=== PATIENT | female | born 1990 | race African-American/Black ===

== ENCOUNTER 2017-05-07 14:22 | Emergency (ER) | payer OTHER ==
[~2017-05-07] VITALS: Ht 154.9 cm; Wt 50.4 kg
[~2017-05-07 14:22] MED LIST: AMITRIPTYLINE H25 MG PO; ATARAX,VISTARIL25 MG PO; CITALOPRAM HBR20 MG PO; DEPO-PROVER150 MG/ML IM; ENDOCET 5-3251 EACH PO; IBUPROFEN800 MG PO; NOHOMEMEDS; PRENATAL TABLE1 EAC3 PO
[2017-05-07 14:52] LABS: HEMATOCRIT 40.6 % (36.0-46.0); HEMOGLOBIN 13.5 G/DL (11.9-15.5); MCH 28.8 PG (29.0-34.0); MCHC 33.3 G/DL (30.0-36.0); MCV 86.6 FL (83-99); PLATELET COUNT 222 K/uL (156-360); RBC DIS.WIDTH-CV 12.9 % (11.8-14.6); RBC DIS.WIDTH-SD 40.4 % (39-53); RED BLOOD COUNT 4.69 M/uL (3.80-5.20); WHITE BLOOD COUNT 8.7 K/uL (4.1-10.2)
[2017-05-07 15:03] LABS: ALBUMIN 4.6 g/dL (3.2-4.8); CHLORIDE 109 mEq/L (99-109); POTASSIUM 3.7 mEq/L (3.7-5.4); SODIUM 142 mEq/L (136-147)
[2017-05-07 15:06] LABS: GLUCOSE 105 mg/dL (70-99); TOTAL PROTEIN 8.5 g/dL (6.4-8.3)
[2017-05-07 15:06] LABS: APPEARANCE CLOUDY ((CLEAR)); BILIRUBIN NEGATIVE; BLOOD MODERATE; COLOR YELLOW ((YELLOW)); GLUCOSE (STRIP) NEGATIVE; KETONES 80; LEUKOCYTES LARGE; NITRITE NEGATIVE; PROTEIN (STRIP) NEGATIVE; SPECIFIC GRAVITY 1.016 (1.000-1.030); UROBILINOGEN 0.2 MG/DL (0.2-1.0)
[2017-05-07 15:08] LABS: TOTAL BILIRUBIN 1.2 mg/dL (0.0-1.0)
[2017-05-07 15:09] LABS: ALKALINE PHOSPHATASE 73 IU/L (3-129); CREATININE 0.9 mg/dL (0.6-1.3); GFR ESTIMATE (CALCULATED) > 59 mL/min/
[2017-05-07 15:11] LABS: AST (GOT) 19 IU/L (2-34); UREA NITROGEN (BUN) 10 mg/dL (9-23)
[2017-05-07 15:12] LABS: ALT (GPT) 13 IU/L (3-49)
[2017-05-07 15:18] LABS: QUANTITATIVE HCG < 4.0 MIU/ML
[2017-05-07 15:23] LABS: BACTERIA 2+ /HPF; EPITHELIAL CELLS 1+ /HPF; MUCUS 1+ /LPF; RED BLOOD CELLS 15-20 /HPF (0-5); UCUL ADDED? YES; WHITE BLOOD CELLS TNTC /HPF (0-5)
[2017-05-07 15:24] LABS: HYALINE CASTS RARE /LPF
[2017-05-07] MEDS ORDERED: PRILOSEC20 MG PO (15:31)
[2017-05-07] MEDS ORDERED: ZOFRAN4 MG PO (16:25)
[2017-05-07 16:36] VITALS: BP 108/67
== END 2017-05-07 16:37 | disposition home or self-care (01) ==
LOC: EME 14:22
DX: N39.0 Urinary tract infection, site not specified (principal); E86.0 Dehydration; F41.9 Anxiety disorder, unspecified; Z98.890 Other specified postprocedural states; Z88.5 Allergy status to narcotic agent; Z88.8 Allergy status to other drugs, medicaments and biological substances
CPT/HCPCS: 74022; 80053; 81003; 84702; 85027; 87077; 87086; 87186; 99281; 99285; J1885; J2405; J7030